=== PATIENT | female | born 1985 | race African-American/Black ===

== ENCOUNTER 2019-10-08 15:50 | Emergency (ER) | payer MEDICAID ==
[~2019-10-08] VITALS: Ht 167.6 cm; Wt 176.9 kg
[2019-10-08 15:58] VITALS: BP 162/102
[2019-10-08] MEDS ORDERED: GABAPENTIN600 MG ORAL (15:58)
[2019-10-08] MEDS ORDERED: Ketorolac 30mg Inj IM ONE (16:15)
[2019-10-08] MEDS ORDERED: HYDROcodone/Acetamin 5/325 tab ORAL ONE (16:15)
--- NOTE | 2019-10-08 16:21 | Emergency Room Report ---
History of Present Illness General Chief Complaint: Multiple Trauma/Fall Source: Patient Present Illness HPI 34-year-old female presents with back pain. Brought in by EMS from work. 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 Denies hitting her head or LOC. Complaining of pain to her mid to lower back. 8 out of 10, dull, nonradiating. Denies neck pain. Denies chest pain or shortness of breath. No other aggravating relieving factors. Denies any other associated symptoms Allergies: Coded Allergies: No Known Allergies (Unverified , 10/08/19) COVID-19 Screening Contact w/high risk pt: No Experienced COVID-19 symptoms?: No COVID-19 Testing performed [employer]: No Patient History Past Medical History: none Past Surgical History: none Pertinent Family History: none Social History: Denies: smoking, alcohol use, drug use Last Menstrual Period: 09/21/19 Now: No Immunizations: UTD Reviewed Nursing Documentation: PMH: Agreed; PSxH: Agreed Nursing Documentation-PMH Past Medical History: No History, Except For Hx Cardiac Problems: No Hx Hypertension: No Hx Pacemaker: No Hx Asthma: Yes Hx COPD: No Hx Diabetes: No Hx Cancer: No Hx Gastrointestinal Problems: No Hx Dialysis: No History Of Psychiatric Problem: No Hx Neurological Problems: No Hx Cerebrovascular Accident: No Hx Seizures: No Review of Systems All Other Systems: negative except mentioned in HPI Physical Exam Vital Signs Date Time Temp Pulse Resp B/P (MAP) Pulse Ox O2 Delivery O2 Flow Rate FiO2 10/08/19 15:53 97.0 80 18 162/102 (122) 96 Room Air Sp02 EP Interpretation: reviewed, normal General Appearance: no apparent distress, alert, GCS 15, non-toxic, obese Head: normocephalic, atraumatic Eyes: bilateral eye normal inspection, bilateral eye PERRL ENT: hearing grossly normal, normal pharynx, no angioedema, normal voice Neck: full range of motion, supple/symm/no masses Respiratory: chest non-tender, lungs clear, normal breath sounds, speaking full sentences Cardiovascular #1: regular rate, rhythm, no edema Cardiovascular #2: 2+ carotid (R), 2+ carotid (L), 2+ radial (R), 2+ radial (L) , 2+ dorsalis pedis (R), 2+ dorsalis pedis (L) Gastrointestinal: normal bowel sounds, non tender, soft, non-distended, no guarding, no rebound Rectal: deferred Genitourinary: normal inspection, no CVA tenderness, vertebral tenderness Musculoskeletal: back normal, normal range of motion, gait/station normal, non- tender Neurologic: alert, motor strength/tone normal, oriented x3, sensory intact, responsive, speech normal Psychiatric: judgement/insight normal, memory normal, mood/affect normal, no suicidal/homicidal ideation Reflexes: 3+ bicep (R), 3+ bicep (L), 3+ tricep (R), 3+ tricep (L), 3+ knee (R) , 3+ knee (L) Skin: no rash Lymphatic: no adenopathy Medical Decision Making Diagnostic Impression: Primary Impression: Back contusion Qualified Codes: S20.229A - Contusion of unspecified back wall of thorax, initial encounter ER Course Hospital Course 34-year-old female presents with back pain after a tree branch fell on her at work Differential diagnoses include: Fracture, dislocation, sprain, contusion Clinical course Patient placed on stretcher. After initial history and physical, I ordered pain medications and Xrays of T spine and L-spine Xrays read shows no acute fracture/dislocation. I discussed findings with patient. Safe for discharge with close outpatient follow-up. I will provide referrals Diagnosis -back contusion Stable and discharged to home with prescription for tylenol #3, robaxin, lidoderm. weight bear as tolerated. Followup with PMD. Return to ED if symptoms recur or worsen Other X-Ray Diagnostic Results Other X-Ray Diagnostic Results #1: X-Ray ordered: T spine # of Views/Limited Vs Complete: 3 View Indication: Pain EP Interpretation: Yes Interpretation: no dislocation, no soft tissue swelling, no fractures Impression: No acute disease Electronically Signed by: Electronically signed by Karlos Vázquez MD Other X-Ray Diagnostic Results #2: X-Ray ordered: L spine # of Views/Limited Vs Complete: 3 View Indication: Pain EP Interpretation: Yes Interpretation: no dislocation, no soft tissue swelling, no fractures Impression: No acute disease Electronically Signed by: Electronically signed by Karlos Vázquez MD Last Vital Signs Date Time Temp Pulse Resp B/P (MAP) Pulse Ox O2 Delivery O2 Flow Rate FiO2 7/13/20 15:58 97.0 18 162/102 96 Room Air 10/08/19 15:58 80 Status: improved Disposition: HOME, SELF-CARE Condition: Stable Scripts Lidocaine Patch* (Lidoderm Patch*) 1 Each Adh..patch 1 PATCH TOPIC DAILY, #7 PATCH 0 Refills Patch(es) may remain in place for up to 12 hours in any 24-hour period. Prov: Karlos Vázquez MD 10/08/19 Methocarbamol* (ROBAXIN-750*) 750 Mg Tablet 750 MG PO TID, #21 TAB 0 Refills Prov: Karlos Vázquez MD 10/08/19 Acetaminophen With Codeine (T#3) (TYLENOL #3 TAB*) Y Tab 1 TAB ORAL Q8H PRN for For Pain, #12 TAB Prov: Karlos Vázquez MD 10/08/19 Karlos Vázquez MD Oct 08, 2019 16:21
[2019-10-08] MEDS ORDERED: ACETAMINOPHEN-1 EAC1 ORAL (17:26)
[2019-10-08] MEDS ORDERED: LIDODERM700 M1 TOPIC (17:26)
[2019-10-08] MEDS ORDERED: ROBAXIN-750750 MG PO (17:26)
[2019-10-08 17:37] VITALS: BP 162/102
--- NOTE | 2019-10-08 18:13 | Diagnostic Imaging Report ---
Indications: Reason For Exam: PAIN Technique: Two views of the thoracic spine Comparison: None Findings: There is very slight anterior wedging of the T7 and T8 vertebral bodies and very questionable cortical irregularity of the superior and inferior endplates. The remainder of the vertebral body heights are preserved. The bony alignment is normal. The disc spaces are preserved. There are multilevel small anterior osteophytes. Impression: Very slight anterior wedging of the T7 and T8 vertebral bodies. Suspect physiologic, but mild wedge compression fracture deformities not completely excludable. Correlate with clinical findings, consider MRI for better characterization if there is high clinical suspicion No acute abnormality otherwise Mild degenerative changes Findings discussed by phone with Dr. Vázquez in the emergency room at the time of interpretation
--- NOTE | 2019-10-08 18:14 | Diagnostic Imaging Report ---
Indication: Reason For Exam: PAIN Technique: 3 views of the lumbar spine Comparison: None Findings:Bony alignment is normal. Vertebral body heights are preserved. The disc spaces are preserved. Pedicles are intact. Sacral arches are preserved. Sacral iliac joint spaces are preserved. There are anterior osteophytes at multiple levels. Impression: No acute process
== END 2019-10-08 17:39 | disposition home or self-care (01) ==
LOC: EDBD 15:50 → EMR 16:05
DX: S20.229A Contusion of unspecified back wall of thorax, initial encounter (principal); E66.9 Obesity, unspecified; W20.8XXA Other cause of strike by thrown, projected or falling object, initial encounter; Y92.9 Unspecified place or not applicable; Z68.44 Body mass index [BMI] 60.0-69.9, adult
CPT/HCPCS: 72020; 72070; 96372; J1885; Z7502; 99284